=== PATIENT | female | born 1990 | race African-American/Black ===

== ENCOUNTER 2019-09-30 11:43 | Emergency (ER) | payer MEDICAID, SELFPAY ==
[2019-09-30 11:44] VITALS: BP 149/89; PULSE 100; RESP 18; TEMP 36.7; O2SAT 97; BMI 49.3
--- NOTE | 2019-09-30 12:10 | HMH.EDGENADL ---
ED Disposition Clinical Impression: Medication refill, Encounter for medical screening examination Disposition: Home, Self-Care Condition on Discharge: Good Instructions: DI for General Allergic Reactions Prescriptions: Albuterol Sulfate [Albuterol 0.083% 2.5mg/3mL neb] 2.5 mg IH NEEDED PRN #1 neb PRN Reason: Shortness Of Breath Prescription Printed Referrals: Provider,Referral, [Primary Care Provider] - 3 days - Critical Care Critical Care Time: No Attestation: On 09/30/19, the high probability of a clinically significant, sudden or life threatening deterioration of the following system(s) required my full and direct attention, intervention and personal management. The time I documented below is in addition to time spent performing reported procedures but includes the following listed in this critical care notation. Medical Decision Making - Medical Records Medical records reviewed: Yes: I reviewed the patient's medical records. - Neil Inquiry Pt receiving controlled substance: No Vital Signs: 09/30/19 11:44 Temperature 98.1 F Temperature Source Oral Pulse Rate [Radial] 100 H Respiratory Rate 18 Blood Pressure [Right Arm] 149/89 H Blood Pressure Mean [Right Arm] 109 Blood Pressure Source [Right Arm] Automatic Cuff Blood Pressure Position [Right Arm] Sitting 02 Sat by Pulse Oximetry 97 Oxygen Delivery Method Room Air Medical Decision Narrative: Patient with no rash or signs of allergic reaction. No signs of shingles. She is afebrile. Will refill Ventolin and advised follow-up with primary care provider for further refills. General Adult HPI - General Chief complaint: Skin/Abscess/Foreign Body Stated complaint: rash on face,eye swollen Time Seen by Provider: 09/30/19 12:00 Mode of Arrival: Ambulatory Limitations: No Limitations Description of Symptoms (Recalled from ER Triage Doc. by RN): States she has been in contact with her neighbor has shingles. states that her lips, janett legs, and arms have a rash on them and they hurt, itch, and are warm to touch, - History of Present Illness HPI narrative: This is a 28-year-old female with a past medical history significant for anxiety who presents to the emergency department for concerns of possible shingles or allergic reaction. She has been exposed to a friend who had shingles and states that this morning her left eye was swollen and she had a rash on her right arm. However the symptoms have resolved now. She did not take any medications. She has no known allergies. No vomiting or difficulty breathing. She also is requesting a refill on her Ventolin inhaler. - Related Data Previous Rx's Medication Instructions Recorded Loratadine [Claritin] 10 mg PO DAILY #30 tab 07/18/19 predniSONE [Prednisone 20mg 20 mg PO BID #6 tab 07/18/19 Tab] Albuterol Sulfate [Albuterol 2.5 mg IH NEEDED PRN #1 neb 09/30/19 0.083% 2.5mg/3mL neb] Allergies Allergy/AdvReac Type Severity Reaction Status Date / Time No Known Allergies Allergy Verified 07/18/19 13:18 [facility] History - Hepatitis A Screen Drug use history?: No High risk sexual behaviors?: No History of sexually transmitted infection?: No Currently employed?: No Childcare worker?: No Do you have indoor plumbing?: Yes Do you have electricity?: Yes Attestation statement:: This patient has been screened for Hepatitis A risk factors. I have reviewed the patient's past medical history: Yes Medical History: Denies:: Diabetes Mellitus Type 1, Diabetes Mellitus Type 2 - Social History Educational Level: Completed High School Smoking Status: Current every day smoker Tobacco Type: cigarettes # Packs/Day (cigarettes): 1 Alcohol Intake: never Occupational Status: other Housing: house ROS Obtained: Yes All systems reviewed & no additional complaints Physical Exam - General General appearance: alert, in no apparent distress - Head Head exam: atraumatic,
[2019-09-30 12:11] VITALS: BP 145/72; PULSE 90; RESP 22; O2SAT 99
[2019-09-30 12:24] VITALS: BP 145/72; PULSE 90; RESP 22; TEMP 36.7; O2SAT 99
--- NOTE | 2020-12-16 11:12 | ECG_ITS ---
APPROVED REPORT Exam: Resting ECG HR:86 bpm ECG Measurements Heart Rate 86 AXES FL 194 P 73 QRSd 86 QRS 57 QT 356 T 51 QTc 426 Conclusion Normal sinus rhythm Normal ECG Electronically signed by : Mayito Cartwright, 12/16/2020 21:35:11
== END 2019-09-30 12:25 | disposition home or self-care (01) ==
PROVIDERS: Emergency Provider Emergency Medicine
DX: J45.909 Unspecified asthma, uncomplicated (principal); F41.8 Other specified anxiety disorders; F17.210 Nicotine dependence, cigarettes, uncomplicated; Z79.899 Other long term (current) drug therapy
CPT/HCPCS: 99282

== ENCOUNTER 2020-12-16 10:59 | Emergency (ER) | payer MEDICAID, SELFPAY ==
[2020-12-16 11:00] VITALS: BP 147/110; PULSE 97; RESP 26; TEMP 36.3; O2SAT 99; BMI 48.6
[2020-12-16 11:21] VITALS: BP 148/98
--- NOTE | 2020-12-16 11:21 | HMH.EDGENADL ---
ED Disposition Clinical Impression: Medication refill Asthma attack Qualifiers: Asthma severity: mild Asthma persistence: intermittent Qualified Code(s): J45.21 - Mild intermittent asthma with (acute) exacerbation Disposition: Home, Self-Care Condition on Discharge: Good Instructions: DI for Shortness of Breath Additional Instructions: Use your albuterol inhaler as needed. Take the keflex as prescribed for your skin infection and return with concerns. Prescriptions: Albuterol Sulfate [Proventil-HFA 90mcg/puff Inh] 1 - 2 puffs IH Q4HP PRN #1 inh PRN Reason: Wheezing Transmission Status: Received by [facility] cephALEXin [Cephalexin 500mg Tab] 500 mg PO Q6H 5 Days #20 tab Transmission Status: Received by [facility] Referrals: Jeff Garcia MD [Staff Physician] - Forms: Work/School Release - Critical Care Critical Care Time: No Attestation: On 12/16/20, the high probability of a clinically significant, sudden or life threatening deterioration of the following system(s) required my full and direct attention, intervention and personal management. The time I documented below is in addition to time spent performing reported procedures but includes the following listed in this critical care notation. Medical Decision Making - Medical Records Medical records reviewed: Yes: I reviewed the patient's medical records. - Neil Inquiry Pt receiving controlled substance: No Vital Signs: 12/16/20 11:00 12/16/20 11:21 Temperature 97.4 F L Temperature Source Oral Pulse Rate [Left Radial] 97 H Respiratory Rate 26 H Blood Pressure 148/98 H Blood Pressure [Right Arm] 147/110 H Blood Pressure Mean [Right Arm] 122 Blood Pressure Source [Right Arm] Automatic Cuff Blood Pressure Position [Right Arm] Sitting 02 Sat by Pulse Oximetry 99 Oxygen Delivery Method Room Air Orders (Tests/Meds): ED MEDICATIONS Discontinued Medications Generic Name Dose Route Start Last Admin Trade Name Freq PRN Reason Stop Dose Admin Albuterol Sulfate 2.5 mg 12/16/20 11:10 12/16/20 11:24 Albuterol 0.083% 2.5 Mg/3 Ml Neb IH 12/16/20 11:11 2.5 mg ONCE ONE Administration Medical Decision Narrative: The patient is a 29 year old female who presents to the ED with shortness of breath. On exam she is awake, alert, stable. She is speaking in full sentences. She has mild bilateral end expiratory wheezes on lung exam. EKG shows NSR with normal intervals and no ST elevation / depression - no sign of ischemia. Likely having an acute COPD or asthma exacerbation. Albuterol nebulizer was ordered. Patient felt much improved after this and felt ready to go home. Of note, patient complaining of right armpit folliculitis - will treat with keflex and have her follow up with PCP. Patient discharged home in good condition. General Adult HPI - General Stated complaint: soa Time Seen by Provider: 12/16/20 11:16 - History of Present Illness HPI narrative: The patient is a 29 year old female who presents to the ED with shortness of breath. The patient states she was on the phone talking to someone about her sister who is critically ill and started to have what she felt like was a panic attack. After this she felt very short of breath. She usually uses a rescue inhaler but did not have one so she came to the ED. Denies chest pain. No vomiting, fever, headache, or any other symptoms. She does smoke about 1/3 pack per day. - Related Data Previous Rx's Medication Instructions Recorded Loratadine [Claritin] 10 mg PO DAILY #30 tab 07/18/19 predniSONE [Prednisone 20mg 20 mg PO BID #6 tab 07/18/19 Tab] Albuterol Sulfate [Albuterol 2.5 mg IH NEEDED PRN #1 neb 09/30/19 0.083% 2.5mg/3mL neb] Albuterol Sulfate [Proventil-HFA 1 - 2 puffs IH Q4HP PRN #1 inh 12/16/20 90mcg/puff Inh] cephALEXin [Cephalexin 500mg Tab] 500 mg PO Q6H 5 Days #20 tab 12/16/20 Allergies A
[2020-12-16 11:47] VITALS: BP 153/95; PULSE 89; RESP 22; TEMP 36.6; O2SAT 98
== END 2020-12-16 11:48 | disposition home or self-care (01) ==
PROVIDERS: Emergency Provider Emergency Medicine
DX: J45.21 Mild intermittent asthma with (acute) exacerbation (principal); Z76.0 Encounter for issue of repeat prescription; F17.210 Nicotine dependence, cigarettes, uncomplicated
CPT/HCPCS: 93005; 99281